=== PATIENT | female | born 1985 | race Caucasian/White ===

== ENCOUNTER 2018-01-27 07:03 | Emergency (ER) | payer SELFPAY ==
[2018-01-27 07:32] LABS: RAPID GROUP A STREP NEGATIVE (NEGATIVE)
[2018-01-27] MEDS ORDERED: CLINDAMYCIN 600 MG/D5% WATER 50 ML IV ONE (07:52)
[2018-01-27] MEDS ORDERED: METHYLPREDNISOLONE SOD SUCC 40MG/ML 1ML ONE (07:52)
[2018-01-27] MEDS ORDERED: LACTATED RINGERS 1000ML 1,000 ML IV ONE (07:52)
[2018-01-27 07:55] LABS: BASOPHILS % (AUTO) 0.2 % (0.0-5.0); EOSINOPHILS % (AUTO) 0.6 % (0.0-8.0); HEMATOCRIT 37.2 % (36-48); LYMPHOCYTES % (AUTO) 47.9 % (21.0-51.0); MEAN CORPUSCULAR HEMOGLOBIN 28.8 pg (27.0-33.0); MEAN CORPUSCULAR HGB CONC 35.1 g/dL (32.0-36.0); MEAN CORPUSCULAR VOLUME 82.2 fL (79-99); MONOCYTES % (AUTO) 32.4 % (3.0-13.0); NEUTROPHILS % (AUTO) 18.9 % (40.0-77.0); NUCLEATED RED BLOOD CELLS 0.1 % (0.0-0.19); PLATELET COUNT (AUTO) 261 K/uL (130-400); RED BLOOD CELL COUNT(AUTO) 4.52 MIL/uL (4.00-5.50); RED CELL DISTRIBUTION WIDTH 11.9 % (11.0-15.5); WHITE BLOOD COUNT (AUTO) 2.2 K/uL (4.8-10.8)
[2018-01-27 08:01] LABS: CREATININE 0.5 mg/dL (0.5-1.5); POTASSIUM 3.1 mmol/L (3.5-5.1)
[2018-01-27] MEDS ORDERED: IPRATROPIUM/ALBUTEROL SULFATE 3 ML SOLUTION IH ONE (08:48)
[2018-01-27 08:59] LABS: LYMPHOCYTES % (MANUAL) 54 % (22-44); MAN.DIFF COMMENT-IMPRESSION MANUAL DIFFERENTIAL; MONOCYTES % (MANUAL) 22 % (2-9); PLATELET MORPHOLOGY COMMENT ADEQUATE; REACTIVE LYMPHOCYTES 7 % (0-0); SEGMENTED NEUTROPHILS % 17 % (40-70)
[2018-01-27] MEDS ORDERED: KETOROLAC TROMETHAMINE 30MG/ML ONE (09:33)
[2018-01-27] MEDS ORDERED: MAG HYDROX/AL HYDROX/SIMETH ES 30 ML SUSP UDCUP ONE (09:33)
[2018-01-27] MEDS ORDERED: LIDOCAINE HCL 2% VISCOUS 15 ML UDCUP ONE (09:33)
[2018-01-27] MEDS ORDERED: POTASSIUM BICARB/CIT AC 25 MEQ TABLET.EFF ONE (09:57)
== END 2018-01-27 10:23 | disposition home or self-care (01) ==
LOC: EDH 07:03
DX: J03.90 Acute tonsillitis, unspecified (principal); D72.819 Decreased white blood cell count, unspecified; B34.9 Viral infection, unspecified; J98.01 Acute bronchospasm; R53.81 Other malaise; R53.83 Other fatigue; E07.9 Disorder of thyroid, unspecified
CPT/HCPCS: 36415; 70491; 71045; 80048; 81025; 85025; 86308; 87804 ×2; 87880; 94640; 96365; 96366; 96375; 99284; J1885; J2920; J3490; J7120

== ENCOUNTER 2020-10-20 16:59 | Inpatient (IN) | payer OTHER ==
[2020-10-20] VITALS (22 sets, daily range): BP systolic 104–164; BP diastolic 54–118
[~2020-10-20] VITALS: Ht 170.2 cm; Wt 63.5 kg
[2020-10-20] MEDS ORDERED: IOHEXOL 350 MG/ML 100ML INFUS..BTL IV ONE (17:13)
[2020-10-20 17:20] LABS: BASOPHILS % (AUTO) 0.1 % (0.0-5.0); HEMATOCRIT 36.5 % (36-48); LYMPHOCYTES % (AUTO) 27.8 % (21.0-51.0); MEAN CORPUSCULAR HEMOGLOBIN 30.7 pg (27.0-33.0); MEAN CORPUSCULAR HGB CONC 35.6 g/dL (32.0-36.0); MEAN CORPUSCULAR VOLUME 86.1 fL (79-99); MONOCYTES % (AUTO) 6.6 % (3.0-13.0); NEUTROPHILS % (AUTO) 65.1 % (40.0-77.0); PLATELET COUNT (AUTO) 281 K/uL (130-400); RED BLOOD CELL COUNT(AUTO) 4.24 MIL/uL (4.00-5.50); RED CELL DISTRIBUTION WIDTH 11.6 % (11.0-15.5); WHITE BLOOD COUNT (AUTO) 8.5 K/uL (4.8-10.8)
[2020-10-20 17:23] LABS: APPEARANCE,URINE Clear (CLEAR); BILIRUBIN,URINE Negative (NEGATIVE); COLOR,URINE Dark Yellow (YELLOW); GLUCOSE, URINE (UA) TRACE mg/dL (NEGATIVE); KETONES,URINE Trace mg/dL (NEGATIVE); LEUKOCYTE ESTERASE ,URINE Negative (NEGATIVE); NITRATE,URINE Negative (NEGATIVE); OCCULT BLOOD,URINE Nonhemolyzed Trace (NEGATIVE); PH,URINE 5.5 (5.0-8.0); PROTEIN,URINE POS 1+ mg/dL (NEGATIVE)
[2020-10-20] MEDS ORDERED: LACTATED RINGERS 1000ML 1,000 ML IV ONE (17:30)
[2020-10-20 17:31] LABS: AMPHET/METH SCREEN,URINE NEGATIVE (NEGATIVE); BARBITURATE SCREEN, URINE NEGATIVE (NEGATIVE); BENZODIAZEPINES SCREEN,URINE NEGATIVE (NEGATIVE); CANNABINOID SCREEN,URINE POSITIVE (NEGATIVE); COCAINE SCREEN,URINE POSITIVE (NEGATIVE); OPIATE SCREEN,URINE NEGATIVE (NEGATIVE); PHENCYCLIDINE SCREEN,URINE NEGATIVE (NEGATIVE)
[2020-10-20 17:34] LABS: CARBON DIOXIDE 26 mmol/L (21-32); CHLORIDE 104 mmol/L (101-111); CREATININE 0.6 mg/dL (0.5-1.5); GLOMERULAR FILTR. RATE CALC 122 mL/min (>60); GLUCOSE,RANDOM 184 mg/dL (70-105); INR 1.05 (0.85-1.15); POTASSIUM 3.3 mmol/L (3.5-5.1); PROTHROMBIN TIME 11.4 SEC (9.6-11.6); SODIUM SERUM 140 mmol/L (136-145); UREA NITROGEN, BLOOD 15 mg/dL (7-18)
[2020-10-20 17:35] LABS: PARTIAL THROMBOPLASTIN TIME 23.6 SEC (26.3-35.5)
[2020-10-20 17:44] LABS: ALANINE AMINOTRANSFERASE 19 U/L (12-78); ALBUMIN 3.7 g/dL (3.5-5.0); ALCOHOL, BLOOD < 3 mg/dL (0-10); ASPARTATE AMINOTRANSFERASE 13 U/L (10-37); BILIRUBIN,TOTAL 0.6 mg/dL (0.2-1.0); CREATINE KINASE, TOTAL 38 U/L (21-232); HCG,QUANTITATIVE 0 mIU/mL (0-5); LIPASE 61 U/L (114-286); MYOGLOBIN 18 ng/mL (10-92); TOTAL PROTEIN, SERUM 7.5 g/dL (6.0-8.3)
[2020-10-20 17:54] LABS: BACTERIA,URINE Few /HPF (None Seen); CALCIUM OXALATE CRYSTALS,UR Moderate /LPF (None Seen); MUCUS,URINE Moderate LPF (None Seen); SQUAMOUS EPITHELIAL CELL,UR Few /HPF (0-2)
[2020-10-20] MEDS ORDERED: MORPHINE 2 MG SYG IVP ONE (18:00)
[2020-10-20] MEDS ORDERED: ONDANSETRON 4MG INJ ONE ×2 (18:07→19:47)
[2020-10-20] MEDS ORDERED: MORPHINE 2 MG SYG ONE (18:11)
[2020-10-20] MEDS ORDERED: ONDANSETRON 4MG INJ IVP ONE (18:30)
[2020-10-20] MEDS ORDERED: CEFAZOLIN SODIUM 1 GM VIAL ONE (19:24)
[2020-10-20] MEDS: LACTATED RINGERS 1000ML 1,000 ML IV SCH (19:30)
[2020-10-20] MEDS ORDERED: LIDOCAINE PF 100MG/5ML (2%) SYRINGE 5ML ONE (19:47)
[2020-10-20] MEDS ORDERED: SUCCINYLCHOLINE CHLORIDE 20 MG/ML 10 ML VIAL ONE (19:47)
[2020-10-20] MEDS ORDERED: GLYCOPYRROLATE 1 MG/5 ML SYRINGE ONE (19:48)
[2020-10-20] MEDS ORDERED: MIDAZOLAM HCL 1 MG/ML 2ML VIAL ONE (19:48)
[2020-10-20] MEDS ORDERED: DEXAMETHASONE SOD PHOSPHATE 10MG/ML 1ML VIAL ONE (19:48)
[2020-10-20] MEDS ORDERED: NEOSTIGMINE 5MG/5ML SYR IV ONE (19:48)
[2020-10-20] MEDS ORDERED: FENTANYL CITRATE PF 50 MCG/1 ML 2ML VIAL ONE (19:48)
[2020-10-20] MEDS ORDERED: PROPOFOL 10 MG/ML 20ML VIAL IV ONE (19:48)
[2020-10-20] MEDS ORDERED: ROCURONIUM 10MG/1ML SYR 10 MG/ML ML ONE ×2 (19:48→21:00)
[2020-10-20] MEDS ORDERED: KETAMINE 50MG/ML SYRINGE 50 MG/ML DISP.SYRIN IV ONE (19:51)
[2020-10-20] MEDS ORDERED: EPHEDRINE SULFATE 50 MG/ML AMPULE ONE (19:54)
[2020-10-20 21:03] LABS: ABG BASE EXCESS -3.9 mmol/L (-2.0-3.0); ABG HCO3 21.7 mmol/L (21.0-28.0); ABG PCO2 42 mmHg (32-45)
[2020-10-20] MEDS ORDERED: PROPOFOL 1000 MG/100 ML 100 ML IV ONE (21:41)
[2020-10-20] MEDS ORDERED: LORAZEPAM 2 MG/ML 1 ML VIAL ONE (22:30)
[2020-10-20] MEDS ORDERED: FENTANYL 2500MCG+NS 250ML 250 ML IV ONE (22:54)
[2020-10-20] MEDS ORDERED: PHARMACY COMMUNICATION MISC SCH (23:00)
[2020-10-20] MEDS: PROPOFOL 1000 MG/100 ML 100 ML IV PRN (23:22)
[2020-10-20] MEDS: LORAZEPAM 2 MG/ML 1 ML VIAL IVP PRN (23:34)
[2020-10-21] VITALS (51 sets, daily range): BP systolic 97–160; BP diastolic 56–107
[2020-10-21 01:27] LABS: BASOPHILS % (AUTO) 0.1 % (0.0-5.0); HEMATOCRIT 25.5 % (36-48); LYMPHOCYTES % (AUTO) 4.3 % (21.0-51.0); MEAN CORPUSCULAR HEMOGLOBIN 30.2 pg (27.0-33.0); MEAN CORPUSCULAR HGB CONC 34.5 g/dL (32.0-36.0); MEAN CORPUSCULAR VOLUME 87.6 fL (79-99); NEUTROPHILS % (AUTO) 91.1 % (40.0-77.0); PLATELET COUNT (AUTO) 264 K/uL (130-400); RED BLOOD CELL COUNT(AUTO) 2.91 MIL/uL (4.00-5.50); RED CELL DISTRIBUTION WIDTH 11.7 % (11.0-15.5); WHITE BLOOD COUNT (AUTO) 14.7 K/uL (4.8-10.8)
[2020-10-21 01:35] LABS: CREATININE 0.5 mg/dL (0.5-1.5); POTASSIUM 4.2 mmol/L (3.5-5.1)
[2020-10-21] MEDS: PROPOFOL 1000 MG/100 ML 100 ML IV PRN ×2 (02:03→08:28)
[2020-10-21] MEDS: ZOSYN 3.375GM+NS 50ML 50 ML IV SCH ×3 (02:04→17:28)
[2020-10-21] MEDS: LACTATED RINGERS 1000ML 1,000 ML IV SCH ×2 (03:44→11:41)
[2020-10-21 04:43] LABS: BASOPHILS % (AUTO) 0.1 % (0.0-5.0); HEMATOCRIT 26.1 % (36-48); MEAN CORPUSCULAR HEMOGLOBIN 31.1 pg (27.0-33.0); MEAN CORPUSCULAR HGB CONC 35.2 g/dL (32.0-36.0); MEAN CORPUSCULAR VOLUME 88.2 fL (79-99); MONOCYTES % (AUTO) 5.3 % (3.0-13.0); NEUTROPHILS % (AUTO) 87.1 % (40.0-77.0); PLATELET COUNT (AUTO) 246 K/uL (130-400); RED BLOOD CELL COUNT(AUTO) 2.96 MIL/uL (4.00-5.50); RED CELL DISTRIBUTION WIDTH 11.8 % (11.0-15.5); WHITE BLOOD COUNT (AUTO) 11.1 K/uL (4.8-10.8)
[2020-10-21 04:59] LABS: CREATININE 0.5 mg/dL (0.5-1.5); POTASSIUM 4.5 mmol/L (3.5-5.1)
[2020-10-21 05:06] LABS: ALBUMIN 2.6 g/dL (3.5-5.0); BILIRUBIN,TOTAL 0.4 mg/dL (0.2-1.0); TOTAL PROTEIN, SERUM 5.4 g/dL (6.0-8.3)
[2020-10-21] MEDS ORDERED: FENTANYL 2500MCG+NS 250ML 250 ML IV SCH (06:30)
[2020-10-21 09:58] LABS: HEMATOCRIT 23.3 % (36-48); MEAN CORPUSCULAR HEMOGLOBIN 29.9 pg (27.0-33.0); MEAN CORPUSCULAR HGB CONC 34.8 g/dL (32.0-36.0); PLATELET COUNT (AUTO) 257 K/uL (130-400); RED BLOOD CELL COUNT(AUTO) 2.71 MIL/uL (4.00-5.50); RED CELL DISTRIBUTION WIDTH 11.8 % (11.0-15.5); WHITE BLOOD COUNT (AUTO) 9.3 K/uL (4.8-10.8)
[2020-10-21] MEDS ORDERED: SOLU-MEDROL 125MG VIAL IVP SCH (10:00)
[2020-10-21 10:45] LABS: LYMPHOCYTES % (MANUAL) 14 % (22-44); MAN.DIFF COMMENT-IMPRESSION MANUAL DIFFERENTIAL; MONOCYTES % (MANUAL) 4 % (2-9); PLATELET MORPHOLOGY COMMENT ADEQUATE; SEGMENTED NEUTROPHILS % 82 % (40-70)
[2020-10-21] MEDS: MORPHINE 4 MG SYG IVP PRN ×2 (14:15→22:52)
[2020-10-21] MEDS: IPRATROPIUM/ALBUTEROL SULFATE 3 ML SOLUTION IH SCH ×2 (14:40→18:33)
[2020-10-21] MEDS ORDERED: PHARMACY COMMUNICATION MISC PRN (16:30)
[2020-10-21] MEDS ORDERED: LORAZEPAM 2 MG/ML 1 ML VIAL IVP PRN ×2 (16:30)
[2020-10-21] MEDS ORDERED: CHLORDIAZEPOXIDE HCL 25 MG CAP PO PRN ×2 (16:30)
[2020-10-21] MEDS ORDERED: MENING VAC A,C,Y,W-135 DIP/PF 1 EACH VIAL IM SCH (17:00)
[2020-10-21] MEDS ORDERED: TETANUS/DIPHTHERIA TOXOID [ADULT] 0.5 ML VIAL IM SCH (17:00)
[2020-10-21] MEDS ORDERED: HAEMOPH B POLY CONJ-TET TOX/PF 10 MCG/0.5 ML VIAL IM SCH (17:00)
[2020-10-21] MEDS ORDERED: PNEUMOCOCCAL VACCINE POLYVALENT 0.5 ML/VIAL [PPV] IM SCH (17:00)
[2020-10-21] MEDS ORDERED: 0.9%NACL 50ML 100 ML IV ONE (17:14)
[2020-10-21 17:25] LABS: HEMATOCRIT 22.7 % (36-48)
[2020-10-21] MEDS ORDERED: ACETAMINOPHEN 650 MG SUPPOSITORY RC PRN (17:30)
[2020-10-21] MEDS: BUDESONIDE 0.5 MG/2 ML INH IH SCH (21:00)
[2020-10-21] MEDS: LORAZEPAM 2 MG/ML 1 ML VIAL IVP PRN (21:49)
[2020-10-22] VITALS (24 sets, daily range): BP systolic 119–158; BP diastolic 50–98
[2020-10-22] MEDS: ZOSYN 3.375GM+NS 50ML 50 ML IV SCH ×3 (01:30→17:02)
[2020-10-22] MEDS: LACTATED RINGERS 1000ML 1,000 ML IV SCH ×4 (01:42→17:54)
[2020-10-22] MEDS: MORPHINE 4 MG SYG IVP PRN ×2 (03:23→08:11)
[2020-10-22] MEDS: ONDANSETRON 4MG INJ IVP PRN ×2 (03:23→12:14)
[2020-10-22 03:53] LABS: BASOPHILS % (AUTO) 0.2 % (0.0-5.0); LYMPHOCYTES % (AUTO) 20.7 % (21.0-51.0); MEAN CORPUSCULAR HEMOGLOBIN 30.6 pg (27.0-33.0); MEAN CORPUSCULAR HGB CONC 34.6 g/dL (32.0-36.0); MEAN CORPUSCULAR VOLUME 88.4 fL (79-99); MONOCYTES % (AUTO) 11.2 % (3.0-13.0); NEUTROPHILS % (AUTO) 67.5 % (40.0-77.0); PLATELET COUNT (AUTO) 261 K/uL (130-400); RED BLOOD CELL COUNT(AUTO) 2.32 MIL/uL (4.00-5.50); RED CELL DISTRIBUTION WIDTH 11.9 % (11.0-15.5); WHITE BLOOD COUNT (AUTO) 16.5 K/uL (4.8-10.8)
[2020-10-22 04:02] LABS: HEMOGLOBIN A1C 5.6 % (4.0-6.0)
[2020-10-22 04:06] LABS: HEMATOCRIT 20.5 % (36-48)
[2020-10-22 04:12] LABS: ALBUMIN 2.4 g/dL (3.5-5.0); BILIRUBIN,TOTAL 0.3 mg/dL (0.2-1.0); CREATININE 0.5 mg/dL (0.5-1.5); POTASSIUM 3.7 mmol/L (3.5-5.1); TOTAL PROTEIN, SERUM 5.6 g/dL (6.0-8.3)
[2020-10-22] MEDS: BUDESONIDE 0.5 MG/2 ML INH IH SCH (06:28)
[2020-10-22] MEDS: IPRATROPIUM/ALBUTEROL SULFATE 3 ML SOLUTION IH SCH (06:29)
[2020-10-22] MEDS: MORPHINE 2 MG SYG IVP PRN ×3 (12:15→23:33)
[2020-10-22 13:11] LABS: HEPATITIS Bs ANTIGEN SCREEN P Negative (Negative)
[2020-10-22] MEDS ORDERED: BUDESONIDE 0.5 MG/2 ML INH IH PRN (14:00)
[2020-10-22] MEDS ORDERED: IPRATROPIUM/ALBUTEROL SULFATE 3 ML SOLUTION IH PRN (14:00)
[2020-10-23] VITALS (21 sets, daily range): BP systolic 116–148; BP diastolic 59–95
[2020-10-23] MEDS: ZOSYN 3.375GM+NS 50ML 50 ML IV SCH ×3 (01:45→20:28)
[2020-10-23] MEDS: LACTATED RINGERS 1000ML 1,000 ML IV SCH ×3 (02:04→20:29)
[2020-10-23 03:28] LABS: BASOPHILS % (AUTO) 0.1 % (0.0-5.0); LYMPHOCYTES % (AUTO) 21.8 % (21.0-51.0); MEAN CORPUSCULAR HEMOGLOBIN 30.2 pg (27.0-33.0); MEAN CORPUSCULAR HGB CONC 33.5 g/dL (32.0-36.0); MEAN CORPUSCULAR VOLUME 90.1 fL (79-99); MONOCYTES % (AUTO) 9.3 % (3.0-13.0); NEUTROPHILS % (AUTO) 68.5 % (40.0-77.0); PLATELET COUNT (AUTO) 246 K/uL (130-400); RED BLOOD CELL COUNT(AUTO) 2.02 MIL/uL (4.00-5.50); RED CELL DISTRIBUTION WIDTH 11.9 % (11.0-15.5); WHITE BLOOD COUNT (AUTO) 11.1 K/uL (4.8-10.8)
[2020-10-23 03:40] LABS: HEMATOCRIT 18.2 % (36-48)
[2020-10-23 03:47] LABS: ALBUMIN 2.1 g/dL (3.5-5.0); BILIRUBIN,TOTAL 0.4 mg/dL (0.2-1.0); CREATININE 0.3 mg/dL (0.5-1.5); POTASSIUM 3.5 mmol/L (3.5-5.1); TOTAL PROTEIN, SERUM 5.3 g/dL (6.0-8.3)
[2020-10-23] MEDS ORDERED: 0.9% NACL 500ML IV.SOLN 500 ML IV ONE (04:14)
[2020-10-23] MEDS: MORPHINE 2 MG SYG IVP PRN ×2 (05:59→12:54)
[2020-10-23 16:59] LABS: HEMATOCRIT 26.9 % (36-48)
[2020-10-23] MEDS: ONDANSETRON 4MG INJ IVP PRN (23:34)
[2020-10-24 04:20] VITALS: BP 125/82
[2020-10-24 04:36] LABS: BASOPHILS % (AUTO) 0.1 % (0.0-5.0); HEMATOCRIT 30.5 % (36-48); MEAN CORPUSCULAR HEMOGLOBIN 30.2 pg (27.0-33.0); MEAN CORPUSCULAR HGB CONC 34.4 g/dL (32.0-36.0); MEAN CORPUSCULAR VOLUME 87.6 fL (79-99); MONOCYTES % (AUTO) 11.2 % (3.0-13.0); NEUTROPHILS % (AUTO) 74.4 % (40.0-77.0); PLATELET COUNT (AUTO) 303 K/uL (130-400); RED BLOOD CELL COUNT(AUTO) 3.48 MIL/uL (4.00-5.50); RED CELL DISTRIBUTION WIDTH 12.3 % (11.0-15.5); WHITE BLOOD COUNT (AUTO) 9.9 K/uL (4.8-10.8)
[2020-10-24 04:56] LABS: ALBUMIN 2.4 g/dL (3.5-5.0); CREATININE 0.3 mg/dL (0.5-1.5); POTASSIUM 3.3 mmol/L (3.5-5.1); TOTAL PROTEIN, SERUM 6.3 g/dL (6.0-8.3)
[2020-10-24] MEDS: ZOSYN 3.375GM+NS 50ML 50 ML IV SCH ×3 (05:06→21:08)
[2020-10-24] MEDS: LACTATED RINGERS 1000ML 1,000 ML IV SCH ×3 (05:07→21:08)
[2020-10-24] MEDS: ONDANSETRON 4MG INJ IVP PRN (07:13)
[2020-10-24 07:30] VITALS: BP 142/89
[2020-10-24 11:00] VITALS: BP 134/86
[2020-10-24] MEDS: MORPHINE 2 MG SYG IVP PRN ×2 (12:11→19:33)
[2020-10-24 16:00] VITALS: BP 124/70
[2020-10-24 19:49] VITALS: BP 124/75
[2020-10-24 23:52] VITALS: BP 137/85
[2020-10-25] MEDS: LACTATED RINGERS 1000ML 1,000 ML IV SCH ×3 (02:58→21:16)
[2020-10-25 03:50] VITALS: BP 145/67
[2020-10-25] MEDS: ZOSYN 3.375GM+NS 50ML 50 ML IV SCH ×3 (04:36→21:14)
[2020-10-25 04:48] LABS: BASOPHILS % (AUTO) 0.1 % (0.0-5.0); EOSINOPHILS % (AUTO) 1.5 % (0.0-8.0); HEMATOCRIT 33.4 % (36-48); LYMPHOCYTES % (AUTO) 13.8 % (21.0-51.0); MEAN CORPUSCULAR HEMOGLOBIN 29.9 pg (27.0-33.0); MEAN CORPUSCULAR HGB CONC 34.7 g/dL (32.0-36.0); MEAN CORPUSCULAR VOLUME 86.1 fL (79-99); MONOCYTES % (AUTO) 12.8 % (3.0-13.0); NEUTROPHILS % (AUTO) 71.6 % (40.0-77.0); PLATELET COUNT (AUTO) 473 K/uL (130-400); RED BLOOD CELL COUNT(AUTO) 3.88 MIL/uL (4.00-5.50); RED CELL DISTRIBUTION WIDTH 12.3 % (11.0-15.5); WHITE BLOOD COUNT (AUTO) 9.4 K/uL (4.8-10.8)
[2020-10-25 05:05] LABS: CREATININE 0.4 mg/dL (0.5-1.5); MAGNESIUM 1.7 mg/dL (1.80-2.40); POTASSIUM 3.2 mmol/L (3.5-5.1)
[2020-10-25] MEDS: ONDANSETRON 4MG INJ IVP PRN ×2 (05:44→21:14)
[2020-10-25] MEDS: MAGNESIUM 2GM PREMIX 50ML 50 ML IV PRN (05:44)
[2020-10-25] MEDS: LIDOCAINE HCL-MPF 1% 2ML VIAL IV PRN ×2 (05:45→11:35)
[2020-10-25] MEDS: POTASSIUM CHLORIDE 10MEQ/100ML 100 ML IV PRN ×2 (05:45→11:35)
[2020-10-25 07:30] VITALS: BP 136/87
[2020-10-25] MEDS: MORPHINE 2 MG SYG IVP PRN ×3 (08:48→21:15)
[2020-10-25 11:00] VITALS: BP 134/83
[2020-10-25] MEDS: PANTOPRAZOLE 40 MG/VIAL IVP SCH (11:34)
[2020-10-25 16:00] VITALS: BP 116/70
[2020-10-25 19:38] VITALS: BP 135/74
[2020-10-25 23:07] VITALS: BP 130/80
[2020-10-26] MEDS: LACTATED RINGERS 1000ML 1,000 ML IV SCH ×3 (01:08→20:12)
[2020-10-26] MEDS: MORPHINE 2 MG SYG IVP PRN ×5 (02:52→22:28)
[2020-10-26 03:11] VITALS: BP 109/57
[2020-10-26] MEDS: ZOSYN 3.375GM+NS 50ML 50 ML IV SCH ×3 (04:34→20:06)
[2020-10-26 05:53] LABS: HEMATOCRIT 35.7 % (36-48); MEAN CORPUSCULAR HEMOGLOBIN 29.9 pg (27.0-33.0); MEAN CORPUSCULAR HGB CONC 34.5 g/dL (32.0-36.0); MEAN CORPUSCULAR VOLUME 86.7 fL (79-99); RED BLOOD CELL COUNT(AUTO) 4.12 MIL/uL (4.00-5.50); RED CELL DISTRIBUTION WIDTH 12.6 % (11.0-15.5); WHITE BLOOD COUNT (AUTO) 6.5 K/uL (4.8-10.8)
[2020-10-26 06:27] LABS: CREATININE 0.3 mg/dL (0.5-1.5); POTASSIUM 3.2 mmol/L (3.5-5.1)
[2020-10-26] MEDS: PANTOPRAZOLE 40 MG/VIAL IVP SCH (09:37)
[2020-10-26] MEDS: POTASSIUM CHLORIDE 10MEQ/100ML 100 ML IV PRN ×4 (09:37→16:19)
[2020-10-26 09:54] VITALS: BP 126/75
[2020-10-26 11:21] VITALS: BP 126/75
[2020-10-26 16:34] VITALS: BP 131/72
[2020-10-26 20:00] VITALS: BP 101/53
[2020-10-27 00:10] VITALS: BP 106/50
[2020-10-27] MEDS: LACTATED RINGERS 1000ML 1,000 ML IV SCH ×2 (02:38→11:54)
[2020-10-27] MEDS: ONDANSETRON 4MG INJ IVP PRN ×3 (02:54→21:49)
[2020-10-27] MEDS: MORPHINE 2 MG SYG IVP PRN ×4 (02:55→21:50)
[2020-10-27] MEDS: ZOSYN 3.375GM+NS 50ML 50 ML IV SCH ×3 (03:21→21:28)
[2020-10-27 04:06] VITALS: BP 121/69
[2020-10-27 07:21] LABS: CREATININE 0.4 mg/dL (0.5-1.5); MAGNESIUM 1.4 mg/dL (1.80-2.40); POTASSIUM 3.6 mmol/L (3.5-5.1)
[2020-10-27 08:00] VITALS: BP 135/79
[2020-10-27] MEDS: PANTOPRAZOLE 40 MG/VIAL IVP SCH (08:46)
[2020-10-27] MEDS: MAGNESIUM 2GM PREMIX 50ML 50 ML IV PRN (08:46)
[2020-10-27] MEDS ORDERED: DEXTROSE 50%-WATER 50 ML DISP.SYRIN IV ONE (11:43)
[2020-10-27 12:00] VITALS: BP 132/71
[2020-10-27] MEDS ORDERED: DEXTROSE 50%-WATER 50 ML DISP.SYRIN IV PRN (12:00)
[2020-10-27 16:00] VITALS: BP 137/77
[2020-10-27] MEDS: DEXTROSE 5%-LACTATED RINGERS 1,000 ML IV SCH ×2 (16:04→23:41)
[2020-10-27 19:57] VITALS: BP 106/55
[2020-10-28] VITALS (7 sets, daily range): BP systolic 103–123; BP diastolic 58–69
[2020-10-28] MEDS: ONDANSETRON 4MG INJ IVP PRN ×4 (03:53→22:33)
[2020-10-28] MEDS: MORPHINE 2 MG SYG IVP PRN ×4 (03:56→22:33)
[2020-10-28 04:28] LABS: BASOPHILS % (AUTO) 0.3 % (0.0-5.0); EOSINOPHILS % (AUTO) 0.2 % (0.0-8.0); HEMATOCRIT 33.7 % (36-48); LYMPHOCYTES % (AUTO) 23.4 % (21.0-51.0); MEAN CORPUSCULAR HEMOGLOBIN 29.8 pg (27.0-33.0); MEAN CORPUSCULAR HGB CONC 34.4 g/dL (32.0-36.0); MEAN CORPUSCULAR VOLUME 86.6 fL (79-99); MONOCYTES % (AUTO) 15.9 % (3.0-13.0); PLATELET COUNT (AUTO) 653 K/uL (130-400); RED BLOOD CELL COUNT(AUTO) 3.89 MIL/uL (4.00-5.50); RED CELL DISTRIBUTION WIDTH 12.8 % (11.0-15.5); WHITE BLOOD COUNT (AUTO) 6.2 K/uL (4.8-10.8)
[2020-10-28 04:40] LABS: ALBUMIN 2.6 g/dL (3.5-5.0); BILIRUBIN,TOTAL 2.1 mg/dL (0.2-1.0); CREATININE 0.4 mg/dL (0.5-1.5); MAGNESIUM 1.5 mg/dL (1.80-2.40); POTASSIUM 3.3 mmol/L (3.5-5.1); TOTAL PROTEIN, SERUM 6.5 g/dL (6.0-8.3)
[2020-10-28] MEDS: MAGNESIUM 2GM PREMIX 50ML 50 ML IV PRN (05:22)
[2020-10-28] MEDS: ZOSYN 3.375GM+NS 50ML 50 ML IV SCH ×3 (05:22→21:00)
[2020-10-28] MEDS: POTASSIUM CHLORIDE 10MEQ/100ML 100 ML IV PRN ×2 (05:40→12:28)
[2020-10-28] MEDS: LIDOCAINE HCL-MPF 1% 2ML VIAL IV PRN ×2 (05:40→12:28)
[2020-10-28] MEDS: DEXTROSE 5%-LACTATED RINGERS 1,000 ML IV SCH ×2 (07:28→14:59)
[2020-10-28] MEDS: PANTOPRAZOLE 40 MG/VIAL IVP SCH (09:34)
[2020-10-29 03:40] VITALS: BP 99/55
[2020-10-29] MEDS: ONDANSETRON 4MG INJ IVP PRN ×2 (03:55→09:59)
[2020-10-29] MEDS: DEXTROSE 5%-LACTATED RINGERS 1,000 ML IV SCH ×2 (03:56→07:30)
[2020-10-29] MEDS: MORPHINE 2 MG SYG IVP PRN ×2 (03:56→10:00)
[2020-10-29] MEDS: ZOSYN 3.375GM+NS 50ML 50 ML IV SCH (03:58)
[2020-10-29 05:27] LABS: BASOPHILS % (AUTO) 0.3 % (0.0-5.0); EOSINOPHILS % (AUTO) 1.8 % (0.0-8.0); HEMATOCRIT 32.3 % (36-48); MEAN CORPUSCULAR HEMOGLOBIN 29.5 pg (27.0-33.0); MEAN CORPUSCULAR HGB CONC 33.7 g/dL (32.0-36.0); MEAN CORPUSCULAR VOLUME 87.3 fL (79-99); MONOCYTES % (AUTO) 12.9 % (3.0-13.0); NEUTROPHILS % (AUTO) 70.6 % (40.0-77.0); PLATELET COUNT (AUTO) 642 K/uL (130-400); RED CELL DISTRIBUTION WIDTH 12.8 % (11.0-15.5); WHITE BLOOD COUNT (AUTO) 7.3 K/uL (4.8-10.8)
[2020-10-29 06:14] LABS: ALBUMIN 2.4 g/dL (3.5-5.0); BILIRUBIN,TOTAL 0.9 mg/dL (0.2-1.0); CREATININE 0.5 mg/dL (0.5-1.5); POTASSIUM 3.7 mmol/L (3.5-5.1); TOTAL PROTEIN, SERUM 6.1 g/dL (6.0-8.3)
[2020-10-29 07:18] VITALS: BP 105/46
[2020-10-29] MEDS: MAGNESIUM 2GM PREMIX 50ML 50 ML IV PRN (09:59)
[2020-10-29] MEDS: PANTOPRAZOLE 40 MG/VIAL IVP SCH (09:59)
[2020-10-29 11:58] VITALS: BP 117/67
== END 2020-10-29 12:35 | disposition left against medical advice (07) | DRG 907 ==
LOC: EDH 16:59 → EDHIP 17:00 → 2CH 21:59 → 3BH 10-23 18:10
PROVIDERS: ADMIT Surgery; ATTEND Surgery
PROC: 5A1935Z Respiratory Ventilation, Less than 24 Consecutive Hours (ICD-10-PCS; 2020-10-20)
PROC: 0BH17EZ Insertion of Endotracheal Airway into Trachea, Via Natural or Artificial Opening (ICD-10-PCS; 2020-10-20)
PROC: 07BP0ZZ Excision of Spleen, Open Approach (ICD-10-PCS; principal; 2020-10-20 20:34)
PROC: 0DJ60ZZ Inspection of Stomach, Open Approach (ICD-10-PCS; 2020-10-20 20:34)
PROC: 3E0234Z Introduction of Serum, Toxoid and Vaccine into Muscle, Percutaneous Approach (ICD-10-PCS; 2020-10-21)
PROC: 30233N1 Transfusion of Nonautologous Red Blood Cells into Peripheral Vein, Percutaneous Approach (ICD-10-PCS; 2020-10-23)
DX: S36.899A Unspecified injury of other intra-abdominal organs, initial encounter (principal); J96.00 Acute respiratory failure, unspecified whether with hypoxia or hypercapnia; D62 Acute posthemorrhagic anemia; K56.7 Ileus, unspecified; S36.039A Unspecified laceration of spleen, initial encounter; D72.829 Elevated white blood cell count, unspecified; E83.42 Hypomagnesemia; J45.909 Unspecified asthma, uncomplicated; E87.6 Hypokalemia; Z20.822 Contact with and (suspected) exposure to COVID-19; V89.2XXA Person injured in unspecified motor-vehicle accident, traffic, initial encounter; Y93.89 Activity, other specified; Y92.488 Other paved roadways as the place of occurrence of the external cause; Y99.8 Other external cause status
CPT/HCPCS: 36415; 70450; 71045; 71250; 72125; 74018; 74177; 80048; 80053; 80305; 81001; 82140; 82435; 82550; 82803; 82947; 82948; 83036; 83605; 83690; 83735; 83874; 84132; 84145; 84295; 84484; 84702; 85014; 85018; 85025; 85027; 85610; 85730; 86701; 86804; 86850; 86900; 86901; 86922; 87040; 87340; 87390; 87522; 87635; 90714; 93005; 94002; 94003; 94640; 94664; 97039; 99291; A4344; C9113; G0378; J0330; J0690; J1100; J2001; J2060; J2250; J2270; J2405; J2543; J2704; J2710; J2930; J3010; J3475; J3490; J7030; J7040; J7070; J7120; P9016; Q9967